=== PATIENT | male | born 1950 | race American Indian/Alaskan Native ===

== ENCOUNTER 2019-03-20 17:54 | Emergency (ER) | payer MEDICARE ==
--- NOTE | 2019-03-20 18:20 | Emergency Department Report ---
Blank Doc - Documentation Documentation: 69 y/o male comes in for left great at the metatarsal . No injury. PMH CVA, H TN, on Lisinopril, lipitor and Plavix
[2019-03-20 19:08] LABS: Basophils % (Auto) 0.6 % (0.0-1.8); Eosinophils % (Auto) 0.7 % (0.0-4.3); Hematocrit 37.7 % (35.5-45.6); Hemoglobin 12.7 gm/dl (11.8-15.2); Lymphocytes # (Auto) 1.4 K/mm3 (1.2-5.4); Mean Corpuscular HGB Conc 34 % (32-34); Mean Corpuscular Volume 100 fl (84-94); Monocytes # (Auto) 0.4 K/mm3 (0.0-0.8); Monocytes % (Auto) 6.9 % (0.0-7.3); Platelet Count 266 K/mm3 (140-440); Red Blood Count 3.78 M/mm3 (3.65-5.03); Red Cell Distribution Width 12.4 % (13.2-15.2)
[2019-03-20 19:39] LABS: BUN/Creatinine Ratio 10; Blood Urea Nitrogen 13 mg/dL (9-20); Calcium 8.9 mg/dL (8.4-10.2); Hemolysis Index 4; Uric Acid 8.3 mg/dL (3.5-7.6)
[2019-03-20] MEDS ORDERED: IBUPROFEN PO ONE (20:10)
[2019-03-20] MEDS ORDERED: DELTASONE PO ONE (20:10)
[2019-03-20] MEDS ORDERED: TYLENOL #3 PO ONE (20:11)
--- NOTE | 2019-03-20 20:15 | Emergency Department Report ---
ED Lower Extremity HPI - General Chief Complaint: Extremity Problem,Nontraumatic Stated Complaint: L FOOT SWOLLEN Time Seen by Provider: 03/20/19 18:16 Source: patient Mode of arrival: Ambulatory Limitations: No Limitations - History of Present Illness Initial Comments: 69 y/o male comes in for left great at the metatarsal . No injury. PMH CVA, HTN, on Lisinopril, lipitor and Plavix Complaint: foot injury Onset/Timin -: days(s) Injury: Foot: Left (instep and great toe pain and swelling ) Type of Injury: other (none) Place: home Severity: moderate Severity scale (0 -10): 5 Worsens With: weight bearing Associated Symptoms: swelling, able to partially bear weight. denies: snap/pop sensation, numbness, tingling - Related Data Previous Rx's Medication Instructions Recorded Last Taken Type Colchicine 0.6 mg PO BID 10 Days #20 capsule 03/20/19 Unknown Rx predniSONE [Deltasone] 40 mg PO QDAY 5 Days #10 tab 03/20/19 Unknown Rx Allergies Allergy/AdvReac Type Severity Reaction Status Date / Time No Known Allergies Allergy Unverified 03/20/19 17:59 ED Review of Systems ROS: Stated complaint: L FOOT SWOLLEN Other details as noted in HPI Constitutional: denies: chills, fever Eyes: denies: eye pain, eye discharge, vision change ENT: denies: ear pain, throat pain Respiratory: denies: cough, shortness of breath, wheezing Cardiovascular: denies: chest pain, palpitations Endocrine: no symptoms reported Gastrointestinal: as per HPI Genitourinary: denies: urgency, dysuria Musculoskeletal: joint swelling (left great toe ), arthralgia Skin: denies: rash, lesions Neurological: denies: headache, weakness, paresthesias Psychiatric: denies: anxiety, depression Hematological/Lymphatic: denies: easy bleeding, easy bruising ED Past Medical Hx - Past Medical History Previous Medical History?: Yes Hx CVA: Yes - Surgical History Past Surgical History?: No - Social History Smoking Status: Current Every Day Smoker - Medications Home Medications: Home Medications Medication Instructions Recorded Confirmed Last Taken Type Colchicine 0.6 mg PO BID 10 Days #20 capsule 03/20/19 Unknown Rx predniSONE [Deltasone] 40 mg PO QDAY 5 Days #10 tab 03/20/19 Unknown Rx ED Physical Exam - General Limitations: No Limitations General appearance: alert, in no apparent distress - Head Head exam: Present: atraumatic, normocephalic - Eye Eye exam: Present: normal appearance - ENT ENT exam: Present: mucous membranes moist - Neck Neck exam: Present: normal inspection, full ROM - Respiratory Respiratory exam: Present: normal lung sounds bilaterally. Absent: respiratory distress - Cardiovascular Cardiovascular Exam: Present: regular rate, normal rhythm. 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 Absent: pedal edema, joint swelling - Expanded Lower Extremity Exam Left Foot/Toe exam: Present: full ROM, tenderness, swelling. Absent: abrasion, laceration, deformity, crepidus, dislocation, erythema, amputation, foreign body, calcaneal tenderness, tenderness at base of 5th metatarsal, nail avulsion, subungual hematoma Neuro vascular tendon exam: Absent: pulse deficit, motor deficit, sensory deficit, tendon deficit Gait: Positive: observed and limited by pain - Back Exam Back exam: Present: normal inspection, full ROM. Absent: tenderness - Neurological Exam Neurological exam: Present: alert, oriented X3, CN II-XII intact, reflexes normal. Absent: motor sensory deficit - Psychiatric Psychiatric exam: Present: normal affect, normal mood - Skin Skin exam: Present: warm, dry, intact, normal color. Absent: rash ED Course Vital Signs 03/20/19 18:17 Temperature 97.9 F Pulse Rate 56 L Respiratory 18 Rate Blood Pressure 139/73 O2 Sat by Pulse 99 Oximetry ED Lower Extremity MDM - Lab Data Result diagrams: 03/20/19 18:49 03/20/19 18:49 Labs 03/20/19 03/20/19 18:49 18:49 WBC 6.4 RBC 3.78 Hgb 12.7 Hct 37.7 MCV 100 H MCH 34 H MCHC 34 RDW 12.4 L Plt Count 266 Lymph % (Auto) 22.0 Brooks % (Auto) 6.9 Eos % (Auto) 0.7 Baso % (Auto) 0.6 Lymph # 1.4 Brooks # 0.4 Eos # 0.0 Baso # 0.0 Seg Neutrophils % 69.8 Seg Neutrophils # 4.5 Sodium 138 Potassium 4.7 Chloride 102.9 Carbon Dioxide 27 Anion Gap 13 BUN 13 Creatinine 1.3 Estimated GFR > 60 BUN/Creatinine Ratio 10 Glucose 108 H Uric Acid 8.3 H Calcium 8.9 - Radiology Data Radiology results: image reviewed no fracture no soft tissue abnormality - Medical Decision Making no fracture no soft tissue abnormality , distal pulses intact , 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 prednisone, tylenol, colchicine pt is on plavix at home pt will follow up with pcp in 2-3 days return to ed if symptoms worsen or not improved pt v erbalized agreement and understanding of discharge plan pt for dc to home in stable conditon at this time. Critical care attestation.: If time is entered above; I have spent that time in minutes in the direct care of this critically ill patient, excluding procedure time. ED Disposition Clinical Impression: Gout Qualifiers: Gout site: foot Gout etiology: unspecified cause Chronicity: unspecified Laterality: left Qualified Code(s): M10.9 - Gout, unspecified Disposition: DC-01 TO HOME OR SELFCARE Is pt being admited?: No Does the pt Need Aspirin: No Condition: Stable Instructions: Acute Gouty Arthritis (ED), Low Purine Diet (ED) Prescriptions: Colchicine 0.6 mg PO BID 10 Days #20 capsule predniSONE [Deltasone] 40 mg PO QDAY 5 Days #10 tab Referrals: LEXUS MILLER MD [Staff Physician] - 3-5 Days Forms: Work/School Release Form(ED) Time of Disposition: 20:26
--- NOTE | 2019-03-20 20:41 | XRay Report ---
PROCEDURE: XR FOOT 2V LT TECHNIQUE: Left foot HISTORY: metatarsal pain left foot COMPARISONS: FINDINGS: There are erosive changes seen at the head of the first metatarsal there is some mildly increased adj acent soft tissue density and swelling. No evidence for joint space narrowing. No acute fractures are identified. Remaining bony structures seen are unremarkable. IMPRESSION: Erosive changes at the head of the first metatarsal. Findings are most suggestive of gout. This document is electronically signed by Joseluis Schneider MD., Mar 20 2019 08:39:26 PM ET
[2019-03-20 20:53] VITALS: BP 134/80
== END 2019-03-20 20:52 | disposition home or self-care (01) ==
LOC: ED 17:54
DX: M10.072 Idiopathic gout, left ankle and foot (principal); I10 Essential (primary) hypertension; F17.200 Nicotine dependence, unspecified, uncomplicated; Z79.02 Long term (current) use of antithrombotics/antiplatelets
CPT/HCPCS: 36415; 73620; 80048; 84550; 85025; 99284; J7512